=== PATIENT | female | born 1940 | race Two or more races ===

== ENCOUNTER 2022-11-20 16:27 | Emergency (ER) | payer OTHER ==
[~2022-11-20] VITALS: Ht 157.5 cm; Wt 63.5 kg
[2022-11-20] MEDS ORDERED: TRAMADOL HCL50 MG PO (20:21)
== END 2022-11-20 20:43 | disposition home or self-care (01) ==
LOC: ER 16:27
DX: S82.032A Displaced transverse fracture of left patella, initial encounter for closed fracture (principal); M19.90 Unspecified osteoarthritis, unspecified site; E11.9 Type 2 diabetes mellitus without complications; E78.00 Pure hypercholesterolemia, unspecified; I10 Essential (primary) hypertension; I73.89 Other specified peripheral vascular diseases; W19.XXXA Unspecified fall, initial encounter; Y93.89 Activity, other specified; Y92.89 Other specified places as the place of occurrence of the external cause
CPT/HCPCS: 29505; 72170; 73552; 73560; 96372; 99284; J1885